=== PATIENT | male | born 1995 | race Caucasian/White ===

== ENCOUNTER 2024-04-22 06:06 | Emergency (ER) | payer OTHER, SELFPAY ==
[2024-04-22] MEDS ORDERED: Midazolam HCl 2 mg/2 ml Vial ONE (07:35)
[2024-04-22 07:41] LABS: #Basophils 0.05 10x3/uL (0.0-0.2); %Basophils 0.9 % (0.0-1.0); %Eosinophils 1.3 % (0.0-10.0); %Lymphocytes 29.3 % (21.0-51.0); %Monocytes 7.3 % (0.0-10.0); %Neutrophils 60.3 % (42.0-75.0); Hematocrit 42.5 % (42.0-52.0); Hemoglobin 14.9 g/dL (14.0-18.0); Mean Corpuscular HGB CONC 35.1 g/dL (32.0-36.0); Mean Corpuscular Hemoglobin 31.1 pg (27.0-31.0); Mean Corpuscular Volume 88.7 fL (78.0-98.0); Platelet Count 235 10x3/uL (130-400); RBC Distribution Width 12.4 % (11.5-14.5); Red Blood Cell (RBC) Count 4.79 mill/uL (4.70-6.10)
[2024-04-22 08:02] LABS: ALT (SGPT) 25 U/L (8-55); AST (SGOT) 38 U/L (5-34); Acetaminophen Less than 10 mcg/mL (10.0-30.0); Albumin 4.2 g/dL (3.5-5.0); Alkaline Phosphatase 71 U/L (40-110); Anion Gap 16 mmol/L (10-20); BUN (Urea Nitrogen) 12 mg/dL (8.9-20.6); Bilirubin, Total 0.3 mg/dL (0.2-1.2); Calc. Creatinine Clearance 0 mL/min (70-130); Calcium 9.8 mg/dL (7.8-10.44); Carbon Dioxide 18 mmol/L (22-29); Chloride 109 mmol/L (98-107); Estimated GFR 95; Globulin 4.1 g/dL (2.4-3.5); Glucose 103 mg/dL (70-105); Protein, Total 8.3 g/dL (6.0-8.3); Salicylate Less than 8.0 mg/dL (15.0-30.0); Sodium 139 mmol/L (136-145)
[2024-04-22 08:13] LABS: Troponin I Less than 0.010 ng/mL (< 0.028)
[2024-04-22 08:23] LABS: Free T4 (Free Thyroxine) 1.26 ng/dL (0.70-1.48); Thyroid Stimulating Hormone 1.1184 uIU/mL (0.35-4.94)
== END 2024-04-22 08:47 ==
LOC: ERS 06:06 → EDBD 06:06 → ERS 08:47
DX: F41.9 Anxiety disorder, unspecified (principal); F10.129 Alcohol abuse with intoxication, unspecified; I10 Essential (primary) hypertension; Y90.6 Blood alcohol level of 120-199 mg/100 ml; Z79.899 Other long term (current) drug therapy
CPT/HCPCS: 71045; 80053; 80307; 84439; 84443; 84484; 85025; 93005; 96374; J2250